=== PATIENT | male | born 1965 | race Caucasian/White ===

== ENCOUNTER 2016-12-04 16:43 | Emergency (ER) | payer MEDICAID ==
[~2016-12-04] VITALS: Ht 170.2 cm; Wt 72.6 kg
[~2016-12-04 16:43] MED LIST: CIPRO PO; FLEXERIL PO; KEFLEX PO; PERCOCET5/325 PO; PHENERGAN PO; SUBOXONE PO; SYMBYAX PO; ULTRAM PO
[2016-12-04] MEDS ORDERED: KLONOPIN (16:50)
[2016-12-04] MEDS ORDERED: METHADONE HCL10 MG (16:50)
== END 2016-12-04 17:23 | disposition home or self-care (01) ==
LOC: SED 16:43
DX: T15.92XA Foreign body on external eye, part unspecified, left eye, initial encounter (principal); Z88.8 Allergy status to other drugs, medicaments and biological substances
CPT/HCPCS: 99283